=== PATIENT | male | born 1955 | race Caucasian/White ===

== ENCOUNTER 2017-10-13 22:36 | Emergency (ER) | payer OTHER ==
[2017-10-14] MEDS: HYDROCODONE/APAP (5/325) TAB PO (01:15)
== END 2017-10-14 02:24 | disposition home or self-care (01) ==
LOC: FTE 22:36
DX: S49.91XA Unspecified injury of right shoulder and upper arm, initial encounter (principal); I10 Essential (primary) hypertension; W01.0XXA Fall on same level from slipping, tripping and stumbling without subsequent striking against object, initial encounter; Y92.9 Unspecified place or not applicable
CPT/HCPCS: 29105; 73030-RT; 99283-25

== ENCOUNTER 2018-04-02 14:21 | Emergency (ER) | payer OTHER ==
[2018-04-02] MEDS: IBUPROFEN 800 MG TAB PO (14:58)
== END 2018-04-02 15:51 | disposition home or self-care (01) ==
LOC: FTE 14:21
DX: S49.91XA Unspecified injury of right shoulder and upper arm, initial encounter (principal); I10 Essential (primary) hypertension; W01.0XXA Fall on same level from slipping, tripping and stumbling without subsequent striking against object, initial encounter; Y92.9 Unspecified place or not applicable; Z86.73 Personal history of transient ischemic attack (TIA), and cerebral infarction without residual deficits; Z79.82 Long term (current) use of aspirin
CPT/HCPCS: 73030; 73030-RT; 99283-25